=== PATIENT | female | born 1960 | race Caucasian/White ===

== ENCOUNTER 2018-06-03 13:14 | Day surgery (SDC) | payer BC, SELFPAY ==
[2018-06-03 13:43] VITALS: BMI 37.5
[2018-06-03 13:48] VITALS: BP 110/54; PULSE 76; RESP 16; TEMP 36.8; O2SAT 95
[2018-06-03] MEDS: SODIUM CHLORIDE 0.9% 1,000 ML 21 ML IV (13:55)
--- NOTE | 2018-06-03 14:20 | PM.HP.1 ---
History of Present Illness Date Patient Seen: 06/03/18 Time Patient Seen: 14:22 Chief complaint: [id number] Narrative: Preop evaluation for weight loss surgery. No upper GI symptoms Patient History Medical History Asthma (Acute) Environmental allergies (Acute) Obesity (Acute) Family & Social History Social History: household members none Meds Home Medications Medication Instructions Recorded Confirmed Type Diphenhydramine Hydrochloride 25 mg PO Q4HP PRN #0 11/27/12 06/03/18 History (BENADRYL) acetaminophen [Tylenol Extra 500 mg PO Q4HP #0 11/27/12 06/03/18 History Strength] albuterol sulfate [Ventolin HFA] 2 puff INH Q2HP PRN #0 11/27/12 06/03/18 History fluticasone 2 spray INTRANASAL QDAY #0 11/27/12 06/03/18 History gabapentin [Neurontin] 300 mg PO HS #0 11/27/12 06/03/18 History celecoxib [Celebrex] 200 mg PO QDAY #0 06/27/17 06/03/18 History escitalopram oxalate 20 mg PO HS #0 06/27/17 06/03/18 History fexofenadine 180 mg PO QDAY #0 06/27/17 06/03/18 History tramadol 2 tab PO QIDP PRN #0 06/27/17 06/03/18 History hydroxyzine pamoate [Vistaril] 25 mg PO Q4HP PRN 06/03/18 06/03/18 History Allergies Allergy/AdvReac Type Severity Reaction Status Date / Time bee venom protein (honey bee) Allergy Severe ANAPHYLAXIS Verified 06/03/18 13:38 [BEE VENOM PROTEIN (HONEY BEE)] Iodinated Contrast- Oral and Allergy Severe ANAPHYLAXIS Verified 06/03/18 13:38 IV Dye [IODINATED CONTRAST- ORAL AND IV DYE] shellfish derived Allergy Severe ANAPHYLAXIS, Verified 06/03/18 13:38 [SHELLFISH DERIVED] HIVES adhesive tape [ADHESIVE TAPE] AdvReac Severe IT TAKES Verified 06/03/18 13:38 MY SKIN RIGHT WITH IT NO PAPER TAPE Exam Vital Signs (past 8 hours): - 06/03/18 13:48 Temperature 98.2 F Pulse Rate 76 Respiratory Rate 16 Blood Pressure 110/54 L Pulse Oximetry 95 Oxygen Delivery Method Room Air Narrative Exam Narrative: Oropharynx free of lesion Chest clear to auscultation and percussion Cardiac exam reveals no S3 or murmur Assessment & Plan Plan: Assessment/Plan Narrative: Preop evaluation for weight loss surgery. Need for EGD. Plan to have performed today. Risks, benefits, and alternatives have been explained.
[2018-06-03] MEDS: MIDAZOLAM 5 MG/5 ML VIAL IV (14:29)
[2018-06-03] MEDS: fentaNYL 250 MCG/5 ML INJ IV (14:29)
--- NOTE | 2018-06-03 14:31 | PM.OP.ENDO ---
Operative Date/Time/Diagnoses Date of procedure: 06/03/18 Time of procedure: 14:31 Pre-op diagnosis: See indications Procedure & Clinicians Study performed: EGD Same procedure as scheduled: Yes Indications: Preoperative for planned weight loss surgery. No upper GI complaints Surgeon: Farrah Bass Procedure Notes Procedure in detail: After informed consent was obtained the patient was placed in the left lateral decubitus position. The video upper scope was placed into the oropharynx with the patient still swell did the esophagus. The esophagus stomach and duodenum were carefully examined. On withdrawal retroflexed view of the GE junction was performed. The scope was removed. The patient tolerated the procedure well. Blood loss none Complications none Sedation Fentanyl 100 mcg Versed 5 mg IV titration Total sedation time 7 min Findings 1. Completely normal esophagus with normal squamocolumnar junction. 2. Small to moderate solid food in the stomach performed into a cylinder. Photographs taken. 3. Normal pylorus though a bit difficult to exit 4. Normal duodenal bulb and sweep The finding most likely needs the patient has some degree of poor stomach emptying. She will be following up with her weight loss surgeon, Dr. Hernandez.
[2018-06-03 14:33] VITALS: BP 113/56; PULSE 74; RESP 12; TEMP 36.1; O2SAT 95
[2018-06-03 14:37] VITALS: BP 113/61; PULSE 79; RESP 14; O2SAT 94
[2018-06-03 14:44] VITALS: BP 118/73; PULSE 72; RESP 13; TEMP 36.2; O2SAT 95
[2018-06-03 16:06] VITALS: BP 108/66; PULSE 72; RESP 16; TEMP 36.1; O2SAT 95
== END 2018-06-03 16:06 | disposition home or self-care (01) ==
PROVIDERS: Family Provider Family Medicine; PCP Family Medicine; Visit Provider Internal Medicine Gastroenterology
PROC: 0DJ08ZZ Inspection of Upper Intestinal Tract, Via Natural or Artificial Opening Endoscopic (ICD-10-PCS; CPT 43235; principal; 2018-06-03 14:30)
DX: Z01.818 Encounter for other preprocedural examination (principal); E66.9 Obesity, unspecified; J45.909 Unspecified asthma, uncomplicated
CPT/HCPCS: 43235; J2250; J3010

== ENCOUNTER → 2022-03-06 12:43 | Outpatient (CLI) | payer BC, SELFPAY ==
--- NOTE | 2022-03-06 12:46 | DI.RAD.S_ITS ---
7PROCEDURE: XR KNEE LT 3V INDICATIONS: left knee pain TECHNIQUE: 3 views of the knee were acquired. COMPARISON: None. FINDINGS: Bones: No fractures or dislocations. No suspicious bony lesions. Mild tricompartmental osteoarthritic degenerative changes. Soft tissues: No joint effusion. No suspicious soft tissue calcifications. IMPRESSION: No fracture. No acute osseous lesion. If symptoms and/or clinical suspicion for pathology persists, further assessment with repeat radiographs (7-10 days) or advanced imaging (e.g. CT, MRI or bone scan) should be considered. Mild right knee tricompartmental osteoarthritis. Dictated by: Sunni Morris MD, PhD on 03/06/2022 at 17:54 Approved by: Sunni Morris MD, PhD on 03/06/2022 at 17:55
== END ==
PROVIDERS: Family Provider Family Medicine; PCP Family Medicine; Referring Provider Nurse Practitioner Family; Visit Provider Nurse Practitioner Family
DX: S86.912A Strain of unspecified muscle(s) and tendon(s) at lower leg level, left leg, initial encounter (principal); M17.11 Unilateral primary osteoarthritis, right knee; X58.XXXA Exposure to other specified factors, initial encounter
CPT/HCPCS: 73562

== ENCOUNTER 2022-10-28 17:57 | Emergency (ER) | payer BC, SELFPAY ==
[2022-10-28 18:26] VITALS: BP 119/57; PULSE 82; RESP 18; TEMP 36.8; O2SAT 100; BMI 25.5
--- NOTE | 2022-10-28 18:30 | DI.RAD.S_ITS ---
PROCEDURE: XR TIBIA FUBULA RT 2V INDICATIONS: Fall, with pain. TECHNIQUE: 2 views of the tibia and fibula were acquired. COMPARISON: None. FINDINGS: Bones: No fractures or dislocations. No suspicious bony lesions. Soft tissues: No suspicious soft tissue calcifications or masses. IMPRESSION: Normal study. Dictated by: Amadou Vaz M.D. on 10/28/2022 at 19:16 Approved by: Amadou Vaz M.D. on 10/28/2022 at 19:17
[2022-10-28] MEDS: KETOROLAC 30 MG/ML VIAL IM (21:03)
[2022-10-28] MEDS: HYDROCODONE/ACET 5/325 TABLET 1 TAB PO (21:03)
--- NOTE | 2022-10-28 21:13 | ED.FALL ---
HPI - Fall <Jeane Carl Varunjaskaran, [facility] - Last Filed: 10/28/22 21:23> General Chief Complaint: Fall Stated Complaint: fell/left leg injury Time Seen by Provider: 10/28/22 20:44 Source: patient Mode of arrival: Wheelchair History of Present Illness HPI Narrative: This is a 62-year-old female with history of multiple musculoskeletal issues, prior back surgery, and sees multiple providers for her various ailments and presents today after a mechanical fall from a ladder today when she was taking down [place] lights complaining of a blunt injury to her right mid lower leg on the lateral aspect. States it is painful when she bears weight but is nontender with full range of motion of her hip, knee, ankle, denies any sensation changes. States that she has chronic sensory issues in her left leg from higher back to your but denies any incontinence, weakness, hitting her head, states she was concerned her weak bones. She has a access representative, a back surgeon, a primary care provider, in her pain regimen includes gabapentin in Tylenol. States that she does not have any other medications at home. Is on Celebrex but denies allergy to NSAIDs, is allergic to iodine, shellfish and it he says. Denies fevers, denies history of IV drug abuse, denies any tenderness or spine or low back. Related Data Home Medications Medication Instructions Recorded Confirmed Diphenhydramine Hydrochloride 25 mg PO Q4HP PRN Allergic 11/27/12 03/06/22 (BENADRYL) Reaction ##0 acetaminophen 500 mg tablet 500 mg PO Q4HP ##0 11/27/12 03/06/22 (Tylenol Extra Strength) albuterol sulfate 90 mcg/actuation 2 puff INH Q2HP PRN Dyspnea ##0 11/27/12 03/06/22 aerosol inhaler (Ventolin HFA) fluticasone propionate 50 2 spray intranasal QDAY ##0 11/27/12 03/06/22 mcg/actuation nasal spray,suspension gabapentin 300 mg capsule 300 mg PO HS ##0 11/27/12 03/06/22 (Neurontin) celecoxib 200 mg capsule (Celebrex) 200 mg PO QDAY ##0 06/27/17 03/06/22 escitalopram oxalate 20 mg tablet 20 mg PO HS ##0 06/27/17 03/06/22 fexofenadine 180 mg tablet 180 mg PO QDAY ##0 06/27/17 03/06/22 tramadol 50 mg tablet 2 tab PO QIDP PRN Pain (Scale 06/27/17 03/06/22 Score 1-3) ##0 hydroxyzine pamoate 25 mg capsule 25 mg PO Q4HP PRN Pain (Scale 06/03/18 03/06/22 (Vistaril) Score 1-3) Previous Rx's Medication Instructions Recorded lidocaine HCl 3 % lotion (Lido-K) 1 applic topical BID PRN pain #177 10/28/22 mL naproxen 375 mg tablet,delayed 375 mg PO Q12H #20 tabs 10/28/22 release (EC-Naprosyn) Allergies Allergy/AdvReac Type Severity Reaction Status Date / Time bee venom protein (honey bee) Allergy Severe ANAPHYLAXIS Verified 10/28/22 18:26 [BEE VENOM PROTEIN (HONEY BEE)] Iodinated Contrast Media Allergy Severe ANAPHYLAXIS Verified 10/28/22 18:26 [IODINATED CONTRAST- ORAL AND IV DYE] shellfish derived Allergy Severe ANAPHYLAXIS, Verified 10/28/22 18:26 [SHELLFISH DERIVED] HIVES adhesive tape [ADHESIVE TAPE] AdvReac Severe IT TAKES Verified 10/28/22 18:26 MY SKIN RIGHT WITH IT NO PAPER TAPE Review of Systems <CAT Duff - Last Filed: 10/28/22 21:23> Review of Systems ROS Unobtainable: All systems reviewed & are unremarkable except as noted in HPI and below Patient History <CAT Duff - Last Filed: 10/28/22 21:23> Medical History Asthma Environmental allergies Obesity Social History household members: none Smoking Status: Never smoker Smoking Status: Never smoker Substance Use Type: does not use Exam <CAT Duff - Last Filed: 10/28/22 21:23> Narrative Exam Narrative: Reviewed vitals signs and nursing notes. Exam limited due to patient in wheelchair in the waiting room General: cooperative, comfortable, in no acute distress, well groomed HEENT: symmetrical facial expressions, moist mucous membranes Cardiovascular: regular rate and rhythm, no peripheral edema, warm extremities Respiratory: normal effort, able to speak in complete sentences, without wheezing, stridor, or abnormal breath sounds. No retractions or tachypnea. GI: abdomen soft, nontender to palpation, nondistended, without masses, rebound tenderness or exquisite tenderness with exam. MSK: moves all extremities, neurovascularly intact, no weakness, normal tone, nontender over spine, full range of motion of her right leg without deficit, sensory deficit knee extension and flexion with resistance without weakness, dorsiflexion and plantar extension without weakness, PT pulses equal bilaterally, without edema or tenderness over calf, no bony tenderness with axial load from foot, tenderness with palpation over soft tissue over lateral lower leg, no tenderness over LCL, MCL, negative Jennifer's, no suprapatellar effusion, nontender over patellar tendon full range of motion intact without deficit Skin: brisk capillary refill, without pallor or erythema Neuro: normal speech and cognition, A&O x3, ambulatory, clear speech Psych: mental status is grossly normal, congruent mood, normal affect, pleasant and cooperative Initial Vital Signs Initial Vital Signs: Vital Signs Temperature 98.2 F 10/28/22 18:26 Pulse Rate 82 10/28/22 18:26 Respiratory Rate 18 10/28/22 18:26 Blood Pressure 119/57 L 10/28/22 18:26 Pulse Oximetry 100 10/28/22 18:26 Oxygen Delivery Method 10/28/22 18:26 <Sunita Madden DO - Last Filed: 11/04/22 08:04> Initial Vital Signs Initial Vital Signs: Vital Signs Temperature 98.2 F 10/28/22 18:26 Pulse Rate 82 10/28/22 18:26 Respiratory Rate 18 10/28/22 18:26 Blood Pressure 119/57 L 10/28/22 18:26 Pulse Oximetry 100 10/28/22 18:26 Oxygen Delivery Method 10/28/22 18:26 Course <CAT Duff - Last Filed: 10/28/22 21:23> Orders Ordered: Discontinued Medications Hydrocodone Bitart/Acetaminophen (Hydrocodone/Acet 5/325 Tablet) 1 tab PO NOW ONE Stop: 10/28/22 20:54 Last Admin: 10/28/22 21:03 Dose: 1 tab Documented By: HELEN Ketorolac Tromethamine (Ketorolac 30 Mg/Ml Vial) 30 mg IM NOW ONE Stop: 10/28/22 20:54 Last Admin: 10/28/22 21:03 Dose: 30 mg Documented By: HELEN Vital Signs Vital signs: Vital Signs - 8 hr 10/28/22 18:26 Temperature 98.2 F Pulse Rate 82 Respiratory Rate 18 Blood Pressure 119/57 L Pulse Oximetry 100 Oxygen Delivery Method Room Air <Sunita Madden DO - Last Filed: 11/04/22 08:04> Orders Ordered: Discontinued Medications Hydrocodone Bitart/Acetaminophen (Hydrocodone/Acet 5/325 Tablet) 1 tab PO NOW ONE Stop: 10/28/22 20:54 Last Admin: 10/28/22 21:03 Dose: 1 tab Documented By: HELEN Ketorolac Tromethamine (Ketorolac 30 Mg/Ml Vial) 30 mg IM NOW ONE Stop: 10/28/22 20:54 Last Admin: 10/28/22 21:03 Dose: 30 mg Documented By: HELEN Vital Signs Vital signs: Vital Signs - 8 hr 10/28/22 18:26 Temperature 98.2 F Pulse Rate 82 Respiratory Rate 18 Blood Pressure 119/57 L Pulse Oximetry 100 Oxygen Delivery Method Room Air MDM - Fall <CAT Duff - Last Filed: 10/28/22 21:23> Imaging Data tibia fibula xr: Radiologist's Impression: PROCEDURE:? XR TIBIA FUBULA RT 2V ? INDICATIONS:? Fall, with pain. ? TECHNIQUE:? 2 views of the tibia and fibula were acquired.? ? COMPARISON:? None. ? FINDINGS:? ? Bones:? No fractures or dislocations.? No suspicious bony lesions.? ? Soft tissues:? No suspicious soft tissue calcifications or masses.? ? IMPRESSION:? Normal study. ? ? Dictated by: Amadou Vaz M.D. on 10/28/2022 at 19:16 ? ? Approved by: Amadou Vaz M.D. on 10/28/2022 at 19:17 ? [facility] Narrative Medical decision making narrative: This is a 62-year-old female presents to the emergency department complaining of mechanical fall down 4 rungs on a ladder while removing [place] lights today injuring only her right lower extremity on the lateral aspect. She has a history of chronic pain and multiple musculoskeletal issues and takes gabapentin and Tylenol for her pain. She presents with pain beyond her ability to tolerate home. Her x-ray is negative for acute fracture, patient does not have any symptoms or positive signs of knee instability, full range of motion is intact without deficit, she is able to bear weight and full axial load without bony tenderness. This is most likely a contusion. Differential diagnosis includes fracture, Lynne lavalee lesion, sprain, tibial or fibular injury, tissue injury. Patient has follow-up with her back surgeon tomorrow, encouraged her to follow-up with her specialist as scheduled and her primary care provider for ongoing pain medication as needed. She was treated today with 1 dose of hydrocodone and Toradol, encouraged to use naproxen and Tylenol as needed for her pain otherwise. Patient is appropriate and amenable to discharge home. Vital signs are stable on repeat examination is unremarkable. Patient has been informed of results. Patient has been given strict return to ER precautions for any new or worsening symptoms. Patient understands to follow up closely with outpatient providers as instructed. Patient understands plan and agrees to discharge home. All questions and concerns answered at this time. Discharge Plan Departure Patient Disposition: Home Clinical Impression: Fall Qualifiers: Encounter type: initial encounter Qualified Code(s): W19.XXXA - Unspecified fall, initial encounter Leg pain Qualifiers: Laterality: right Qualified Code(s): M79.604 - Pain in right leg Instructions: Contusion, DI for Leg Pain Activity Restrictions/Additional Instructions: *You have been diagnosed with a fall, leg pain likely a soft tissue injury of your lower leg. Please use Tylenol and ibuprofen together every 6 hours as needed for your pain, stay hydrated, eat a healthy diet, avoid resting for too long and over exerting yourself. Please follow-up with all of your specialist as scheduled including your PCP and ask for referral to physical therapy. Your medications with an anti-inflammatory like ibuprofen should be adequate. Please ensure you are following up with [facility] for your physical therapy referral, medications and ongoing care. Please eat food with naproxen as you are on two anti-inflammatory like medications. *What to do: *Please continue to take your regular medications as directed. [x ] New medication prescriptions sent to your pharmacy: [ [facility] [place]] [ ] New medication written as a paper prescription [ ] No new medications given *Please follow up with your primary care provider in 2-3 days, call for an appointment. Let them know you were seen in the Emergency Department and that we asked that you be seen for follow-up. We will electronically transmit a record of today's note if your PCP is in our system *If you do not have a primary care provider please contact [phone] to establish care with one of the [facility] primary care providers. *Return to Emergency Department if you should have any new, worsening, or concerning symptoms, such as [fever greater than 101F, chills, worsening pain, persistent vomiting or other bothersome symptoms]. Prescriptions: New naproxen [EC-Naprosyn] 375 mg tablet,delayed release (DR/EC) 375 mg PO Q12H Qty: 20 0RF lidocaine HCl [Lido-K] 3 % lotion 1 applic topical BID PRN (Reason: pain) Qty: 177 0RF No Action albuterol sulfate [Ventolin HFA] 90 MCG/PUFF HFA aerosol inhaler 2 puff INH Q2HP PRN (Reason: Dyspnea) Qty: 0 fluticasone propionate 16 GM spray,suspension 2 spray Intranasal QDAY Qty: 0 Diphenhydramine Hydrochloride (BENADRYL) 25 mg PO Q4HP PRN (Reason: Allergic Reaction) Qty: 0 acetaminophen [Tylenol Extra Strength] 500 MG tablet 500 mg PO Q4HP Qty: 0 gabapentin [Neurontin] 300 MG capsule 300 mg PO HS Qty: 0 fexofenadine 180 MG tablet 180 mg PO QDAY Qty: 0 celecoxib [Celebrex] 200 MG capsule 200 mg PO QDAY Qty: 0 escitalopram oxalate 20 MG tablet 20 mg PO HS Qty: 0 tramadol 50 MG tablet 2 tab PO QIDP PRN (Reason: Pain (Scale Score 1-3)) Qty: 0 hydroxyzine pamoate [Vistaril] 25 MG capsule 25 mg PO Q4HP PRN (Reason: Pain (Scale Score 1-3)) Referrals: Selin Stone PA-C [Non-Staff] - Smith Castellano MD [Physician] - John Aguayo MD [Physician] - Wes Yates DO [Primary Care Provider] - <Sunita Madden DO - Last Filed: 11/04/22 08:04> Cosign ED Attending Cosignature Attestation: I was immediately available in the department for consultation. Documentation has been reviewed.
== END 2022-10-28 21:17 | disposition home or self-care (01) ==
PROVIDERS: Emergency Provider Nurse Practitioner Critical Care Medicine; Family Provider Family Medicine; PCP Family Medicine
DX: M79.604 Pain in right leg (principal); W11.XXXA Fall on and from ladder, initial encounter; Z79.899 Other long term (current) drug therapy
CPT/HCPCS: 73590; 96372; 99283; 99284; J1885

== ENCOUNTER → 2023-12-26 15:07 | Outpatient (CLI) | payer BC, SELFPAY ==
--- NOTE | 2023-12-26 15:10 | DI.RAD.S_ITS ---
Bone Density Report Name: TIM ESCOBEDO Age: 63 Sex: Female Ethnicity: White Date of : 1960 Indication: postmenopausal; screening for osteoporosis; Referring Provider: STEPHANIE BA Study: Bone densitometry was performed. Exam Date: December 26, 2023 Accession number: [id number] Bone Density: Region BMD T-score Z-score Classification Femoral Neck (Left) 0.887 0.3 1.9 Normal Total Hip (Left) 0.896 -0.4 0.9 Normal Femoral Neck (Right) 0.860 0.1 1.6 Normal Total Hip (Right) 0.929 -0.1 1.1 Normal Total Hip Mean 0.913 -0.3 1.0 Normal Total Forearm (Left) 0.547 -0.6 1.0 Normal 1/3 Forearm (Left) 0.704 0.2 1.8 Normal UD Forearm (Left) 0.389 -0.9 0.2 Normal World Health Organization criteria for BMD impression classify patients as: Normal (T-score at or above -1.0), Osteopenia (T-score between -1.0 and -2.5), or Osteoporosis (T-score at or below -2.5). 10-year Fracture Risk: FRAX not reported because: All T-scores for Spine Total, Hip Total, Femoral Neck at or above -1.0 Previous Exams: -- Region Exam Age BMD T-score BMD Change BMD Change Date g/cm2 vs Baseline vs Previous -- Total Hip(Left) 12/26/2023 63 0.896 -0.4 -0.210 (-19.0%)# -0.210 (-19.0%)# 03/09/2010 49 1.106 1.3 Total Hip(Right) 12/26/2023 63 0.929 -0.1 -0.109 (-10.5%)# -0.109 (-10.5%)# 03/09/2010 49 1.038 0.8 -- *Denotes significance at 95% confidence level, LSC for Total Hip = 0.027 g/cm2 # Denotes dissimilar scan types or analysis methods Impression: The patient has normal bone mass. No significant bone loss was observed. Discussion: BONE DENSITY IS ABOVE THE MINIMUM DESIRABLE LEVEL AT ALL SKELETAL SITES TESTED. This patient's bone mineral density is above the minimum desirable level (T-score -1.0 or better) at all sites measured. The patient should follow a healthful lifestyle (good nutrition with adequate calcium and vitamin D, and appropriate weight-bearing exercise). Follow-Up: Consider repeating this study in 5 years or sooner if there is some new clinical indication. Reported by: BHASKAR HERZOG M.D. on 12/26/2023 4:15:00 PM.
== END ==
PROVIDERS: Family Provider Family Medicine; PCP Family Medicine; Referring Provider Registered Nurse; Visit Provider Registered Nurse
DX: Z13.820 Encounter for screening for osteoporosis (principal); Z78.0 Asymptomatic menopausal state
CPT/HCPCS: 77080; 77081